=== PATIENT | male | born 1960 | race American Indian/Alaskan Native ===

== ENCOUNTER 2021-02-01 12:35 | Emergency (ER) | payer OTHER ==
[2021-02-01] MEDS ORDERED: ACETAMINOPHEN 325 MG TAB PO ONE (19:53)
[2021-02-01] MEDS ORDERED: CYCLOBENZAPRINE 10 MG TAB PO ONE (19:53)
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
[2021-02-02 03:33] VITALS: BP 146/90
== END 2021-02-01 22:30 | disposition home or self-care (01) ==
LOC: ED 12:35
DX: S00.03XA Contusion of scalp, initial encounter (principal); S09.90XA Unspecified injury of head, initial encounter; M54.5 Low back pain; M25.511 Pain in right shoulder; I10 Essential (primary) hypertension; Z98.890 Other specified postprocedural states; Z79.899 Other long term (current) drug therapy; V89.2XXA Person injured in unspecified motor-vehicle accident, traffic, initial encounter; Y93.89 Activity, other specified; Y92.488 Other paved roadways as the place of occurrence of the external cause; Y99.8 Other external cause status
CPT/HCPCS: 70450; 72100; 72131; 99284